=== PATIENT | female | born 1950 | race Caucasian/White ===

== ENCOUNTER 2017-08-26 18:40 | Emergency (ER) | payer MEDICARE ==
[2017-08-26 18:59] VITALS: RESP 18
[2017-08-26] MEDS ORDERED: KETOROLAC 30 MG/ML 1 ML VIAL IVP STA (19:59)
[2017-08-26] MEDS ORDERED: ORPHENADRINE 30 MG/ML 2 ML VIAL IVP STA (19:59)
[2017-08-26] MEDS ORDERED: SODIUM CHLORIDE 0.9% 500 ML IV ONE (19:59)
[2017-08-26] MEDS ORDERED: MORPHINE SULFATE 2 MG/ML SYRINGE IVP STA (20:01)
--- NOTE | 2017-08-26 20:07 | ED ---
Headache HPI - General Chief Complaint: Headache Stated Complaint: headache Time Seen by Provider: 08/26/17 19:46 Mode of arrival: ambulatory Limitations: no limitations - History of Present Illness Initial Comments: 66-year-old female patient with past medical history significant for occipital neuralgia presents to the emergency department today for evaluation of headache. Patient states that she has had a headache for the past 9 days. States she has been taking her home pain medications including [place] without relief of symptoms. States that she did see her primary care physician today and was given an injection of Demerol and Depo-Medrol without relief of symptoms. Patient states that the pain is located in her left occipital region and her posterior parietal region. Patient states that the pain shoots to her head. States that this headache is similar to her previous flareups of her occipital neuralgia. She states she is treated by a neurologist in [place] and is going to be starting injections in a couple of months. She denies any numbness, tingling, dizziness, weakness, light sensitivity, or sound sensitivity. She denies any fevers or chills. Denies any recent head injury. Patient denies any recent rash, shortness breath, chest pain, abdominal pain, diarrhea, constipation, back pain, hematuria, dysuria, urinary urgency, urinary frequency, headache, visual changes, or any other complaints. - Related Data Home Medications Medication Instructions Recorded Confirmed ALPRAZolam [Xanax] 0.25 mg PO DAILY PRN 08/26/17 08/26/17 Aspirin EC [Ecotrin Low Dose] 81 mg PO DAILY 08/26/17 08/26/17 Baclofen [Lioresal] 10 mg PO HS 08/26/17 08/26/17 Carvedilol [Coreg] 25 mg PO BID 08/26/17 08/26/17 HYDROcodone/APAP 5-325MG [[place] 1 tab PO BID 08/26/17 08/26/17 5-325] Hydrochlorothiazide [Hydrodiuril] 25 mg PO DAILY 08/26/17 08/26/17 Loperamide [Imodium] 2 - 4 mg PO QID PRN 08/26/17 08/26/17 Meloxicam [Mobic] 15 mg PO DAILY 08/26/17 08/26/17 amLODIPine [Norvasc] 5 mg PO DAILY 08/26/17 08/26/17 carBAMazepine [TEGretol] 200 mg PO Q12H 08/26/17 08/26/17 cloNIDine HCL [Catapres] 0.1 mg PO DAILY PRN 08/26/17 08/26/17 Allergies Allergy/AdvReac Type Severity Reaction Status Date / Time red dye Allergy Unknown Verified 08/26/17 19:53 Review of Systems ROS Statement: Those systems with pertinent positive or pertinent negative responses have been documented in the HPI. ROS Other: All systems not noted in ROS Statement are negative. Past Medical History Past Medical History: Hypertension Additional Past Medical History / Comment(s): migraines History of Any Multi-Drug Resistant Organisms: None Reported Past Surgical History: Hysterectomy Additional Past Surgical History / Comment(s): pain implant Past Psychological History: No Psychological Hx Reported Smoking Status: Current every day smoker Past Alcohol Use History: Rare Past Drug Use History: Marijuana General Exam Limitations: no limitations General appearance: alert, in no apparent distress, other (This is a well- developed, well-nourished elderly female patient in no acute distress. Vital signs upon presentation are temperature 97.9F, pulse 78, respirations 18, blood pressure 128/82, pulse ox 95% on room air.) Eye exam: Present: normal appearance, PERRL, EOMI. Absent: scleral icterus, conjunctival injection, nystagmus, periorbital swelling ENT exam: Present: normal exam, normal oropharynx, mucous membranes moist Neck exam: Present: normal inspection, full ROM. Absent: tenderness, meningismus, lymphadenopathy Respiratory exam: Present: normal lung sounds bilaterally. Absent: respiratory distress, wheezes, rales, rhonchi, stridor Cardiovascular Exam: Present: regular rate, normal rhythm, normal heart sounds. Absent: systolic murmur, diastolic murmur, rubs, gallop, clicks GI/Abdominal exam: Present: soft, normal bowel sounds. Absent: distended, tenderness, guarding, rebound, rigid Neurological exam: Present: alert, oriented X3, CN II-XII intact Psychiatric exam: Present: normal affect, normal mood Skin exam: Present: warm, dry, intact, normal color. Absent: rash Course Vital Signs 08/26/17 08/26/17 08/26/17 18:56 21:45 22:22 Temperature 97.9 F 97.1 F L 97.0 F L Pulse Rate 78 70 71 Respiratory 18 18 18 Rate Blood Pressure 128/82 165/92 158/90 O2 Sat by Pulse 95 95 Oximetry Medical Decision Making - Medical Decision Making 66-year-old female patient presents the emergency department today for evaluation of headache 9 days. Patient has history of occipital neuralgia. States that her symptoms are similar to her previous flareups. Denies any new symptoms. Physical examination is unremarkable. Patient is neurologically intact. Patient did receive several medications here in the emergency department. Patient is currently pain-free. States she feels much better. She does feel comfortable being discharged home. She is instructed to follow- up with her neurologist and her primary care physician for recheck as soon as possible. Return parameters discussed in detail. She verbalizes understanding and agrees with this plan. Disposition Clinical Impression: Occipital neuralgia Disposition: HOME SELF-CARE Condition: Good Instructions: Acute Headache (ED) Additional Instructions: Continue home medications as prescribed. Follow-up with your primary care physician and neurologist as you have planned. Return here immediately for any new, worsening, or concerning symptoms. Is patient prescribed a controlled substance at d/c from ED?: No Referrals: Thaddeus Reynolds DO [Primary Care Provider] - 1-2 days Time of Disposition: 22:26
[2017-08-26] MEDS ORDERED: HYDROmorphone 0.5 MG/0.5 ML SYRINGE IVP STA (21:17)
[2017-08-26 22:22] VITALS: BP 158/90; PULSE 71; TEMP 97
== END 2017-08-26 22:32 | disposition home or self-care (01) ==
LOC: EC 18:40
DX: M54.81 Occipital neuralgia (principal); G43.909 Migraine, unspecified, not intractable, without status migrainosus; I10 Essential (primary) hypertension; F17.200 Nicotine dependence, unspecified, uncomplicated; Z79.82 Long term (current) use of aspirin; Z79.891 Long term (current) use of opiate analgesic; Z79.1 Long term (current) use of non-steroidal anti-inflammatories (NSAID); Z79.899 Other long term (current) drug therapy; Z91.048 Other nonmedicinal substance allergy status
CPT/HCPCS: 99283; 96374; 96375 ×3; 96361; J2360; J1885; J2270; J1170